=== PATIENT | female | born 1945 | race Caucasian/White ===

== ENCOUNTER 2017-03-12 12:14 | Outpatient (CLI) | payer OTHER ==
[~2017-03-12 12:14] MED LIST: ARICEPT10 MG; CLONAZEPAM1 MG; DOCUSATE SODIU100 MG PO; PERCOCET 5-3251 EACH PO; PROTONIX20 MG; RESTORIL30 M1
== END 2017-03-12 12:20 | disposition home or self-care (01) ==
LOC: RAD 12:14
DX: M50.00 Cervical disc disorder with myelopathy, unspecified cervical region (principal); Z98.1 Arthrodesis status

== ENCOUNTER 2017-06-12 15:29 | Outpatient (CLI) | payer OTHER | END 2017-06-12 15:36 | disposition home or self-care (01) | LOC: RAD 15:29 | DX: M50.00 Cervical disc disorder with myelopathy, unspecified cervical region (principal); Z98.1 Arthrodesis status ==

== ENCOUNTER 2017-08-19 09:30 | Inpatient (IN) | payer OTHER ==
[~2017-08-19] VITALS: Ht 152.4 cm; Wt 69.9 kg
[2017-08-19] MEDS ORDERED: HYDROCHLOROTHIA25 MG PO (12:02)
[2017-08-27] MEDS ORDERED: GABAPENTIN800 MG PO (09:17)
[2017-08-27] MEDS ORDERED: DOCUSATE SODIU100 MG PO (09:18)
[2017-08-27] MEDS ORDERED: PERCOCET 5-3251 EACH PO ×2 (09:19→09:44)
[2017-08-27] MEDS ORDERED: CLONAZEPAM1 MG PO (09:19)
[2017-08-27] MEDS ORDERED: AMOX-CLAV 875-1 EACH PO (09:19)
[2017-08-27] MEDS ORDERED: DIAZEPAM10 MG PO (09:44)
== END 2017-08-27 14:03 | disposition home or self-care (01) | DRG 460 ==
LOC: PED 08-26 05:50 → O/R 08-26 05:50 → SURH 08-26 09:30 → PED 08-26 14:34
PROVIDERS: Orthopaedic Surgery Orthopaedic Surgery of the Spine
PROC: 0SG00AJ Fusion of Lumbar Vertebral Joint with Interbody Fusion Device, Posterior Approach, Anterior Column, Open Approach (ICD-10-PCS; 2017-08-26)
PROC: 0ST20ZZ Resection of Lumbar Vertebral Disc, Open Approach (ICD-10-PCS; 2017-08-26)
PROC: 07DS3ZZ Extraction of Vertebral Bone Marrow, Percutaneous Approach (ICD-10-PCS; 2017-08-26)
PROC: 0SG00A0 Fusion of Lumbar Vertebral Joint with Interbody Fusion Device, Anterior Approach, Anterior Column, Open Approach (ICD-10-PCS; principal; 2017-08-26 13:00)
DX: M48.061 Spinal stenosis, lumbar region without neurogenic claudication (principal); M43.16 Spondylolisthesis, lumbar region; I10 Essential (primary) hypertension

== ENCOUNTER 2017-10-07 12:49 | Outpatient (CLI) | payer OTHER ==
[~2017-10-07 12:49] MED LIST changes: +AMOX-CLAV 875-1 EACH PO; +CLONAZEPAM1 MG PO; +DIAZEPAM10 MG PO; +GABAPENTIN800 MG PO; +HYDROCHLOROTHIA25 MG PO
== END 2017-10-07 13:13 | disposition home or self-care (01) ==
LOC: RAD 12:49
DX: M51.36 Other intervertebral disc degeneration, lumbar region (principal); Z98.1 Arthrodesis status

== ENCOUNTER 2017-11-21 10:36 | Outpatient (CLI) | payer OTHER | END 2017-11-21 11:24 | disposition home or self-care (01) | LOC: EKG 10:36 | DX: I10 Essential (primary) hypertension (principal) ==

== ENCOUNTER 2018-02-12 13:40 | Outpatient (CLI) | payer OTHER | END 2018-02-12 13:55 | disposition home or self-care (01) | LOC: RAD 13:40 | DX: Z12.31 Encounter for screening mammogram for malignant neoplasm of breast (principal); Z87.898 Personal history of other specified conditions; N60.11 Diffuse cystic mastopathy of right breast; N60.12 Diffuse cystic mastopathy of left breast; R10.2 Pelvic and perineal pain; M50.00 Cervical disc disorder with myelopathy, unspecified cervical region; Z98.1 Arthrodesis status; M48.061 Spinal stenosis, lumbar region without neurogenic claudication ==

== ENCOUNTER 2018-02-14 07:40 | Outpatient (CLI) | payer OTHER | END 2018-02-14 09:08 | disposition home or self-care (01) | LOC: NUCLEAR 07:40 | DX: I20.9 Angina pectoris, unspecified (principal) | CPT/HCPCS: 78452; 93017; A9500; J0153 ==

== ENCOUNTER 2018-10-09 10:40 | Outpatient (CLI) | payer OTHER | END 2018-10-09 11:33 | disposition home or self-care (01) | LOC: SONOGRAMA 10:40 | DX: E04.8 Other specified nontoxic goiter (principal) ==

== ENCOUNTER → 2018-10-09 | Outpatient (CLI) | payer OTHER | END | disposition home or self-care (01) | LOC: TOM 09:00 → SONOGRAMA 10:03 → TOM 10:03 | DX: E04.8 Other specified nontoxic goiter (principal) ==

== ENCOUNTER 2018-11-14 14:16 | Outpatient (CLI) | payer OTHER | END 2018-11-14 14:20 | disposition home or self-care (01) | LOC: SONOGRAMA 14:16 | DX: K11.21 Acute sialoadenitis (principal); E04.2 Nontoxic multinodular goiter ==

== ENCOUNTER 2019-08-17 14:51 | Emergency (ER) | payer OTHER ==
[~2019-08-17] VITALS: Ht 152.4 cm; Wt 68.0 kg
[2019-08-17] MEDS ORDERED: LIPITOR20 MG (15:10)
[2019-08-17] MEDS ORDERED: LEVSIN0.125 MG (15:11)
== END 2019-08-17 21:14 | disposition home or self-care (01) ==
LOC: ER 14:51
DX: K57.30 Diverticulosis of large intestine without perforation or abscess without bleeding (principal); K76.0 Fatty (change of) liver, not elsewhere classified; R10.32 Left lower quadrant pain; Z03.818 Encounter for observation for suspected exposure to other biological agents ruled out

== ENCOUNTER → 2019-10-22 08:00 | Outpatient (CLI) | payer OTHER ==
[~2019-10-22] VITALS: Ht 152.4 cm; Wt 68.0 kg
[~2019-10-22 08:00] MED LIST changes: +COLACE100 MG PO; +DESONIDE59 ML; +ESTAZOLAM2 MG PO; +LEVOTHYROXINE25 MCG PO; +LEVSIN0.125 MG; +LIPITOR20 MG; +MEDROLPACK PO; +NEURONTIN800 MG PO; +OPTIMAL D31250 MCG; +RESTORIL30 M1 PO; +SENNA8.6 MG; +TOLTERODINE TART4 MG
== END | disposition home or self-care (01) ==
LOC: LAB 08:00 → EDSTATUS 10:00 → ADM 10:00 → EDSTATUS 10-29 10:00 → SURH 10-29 10:00
PROVIDERS: ATTEND Orthopaedic Surgery Orthopaedic Surgery of the Spine
DX: M51.36 Other intervertebral disc degeneration, lumbar region (principal); Z20.828 Contact with and (suspected) exposure to other viral communicable diseases; M48.062 Spinal stenosis, lumbar region with neurogenic claudication; D68.8 Other specified coagulation defects; D64.89 Other specified anemias; E03.8 Other specified hypothyroidism; Z03.818 Encounter for observation for suspected exposure to other biological agents ruled out; R07.89 Other chest pain

== ENCOUNTER 2019-12-16 08:00 | Inpatient (IN) | payer OTHER ==
[~2019-12-16] VITALS: Ht 152.4 cm; Wt 67.1 kg
[~2019-12-16 08:00] MED LIST changes: -COLACE100 MG PO; -DESONIDE59 ML; -ESTAZOLAM2 MG PO; -MEDROLPACK PO; -NEURONTIN800 MG PO; -OPTIMAL D31250 MCG; -RESTORIL30 M1 PO; -SENNA8.6 MG; -TOLTERODINE TART4 MG
[2019-12-16] MEDS ORDERED: ESTAZOLAM2 MG PO (10:28)
[2019-12-23] MEDS ORDERED: OPTIMAL D31250 MCG (09:50)
[2019-12-23] MEDS ORDERED: SENNA8.6 MG (09:50)
[2019-12-23] MEDS ORDERED: TOLTERODINE TART4 MG (09:50)
[2019-12-23] MEDS ORDERED: DESONIDE59 ML (09:51)
[2019-12-23] MEDS ORDERED: PERCOCET 5-3251 EACH PO (11:03)
[2019-12-23] MEDS ORDERED: RESTORIL30 M1 PO (11:04)
[2019-12-23] MEDS ORDERED: MEDROLPACK PO (11:04)
[2019-12-23] MEDS ORDERED: AMOX-CLAV 875-1 EACH PO (11:04)
[2019-12-23] MEDS ORDERED: COLACE100 MG PO (11:04)
[2019-12-23] MEDS ORDERED: NEURONTIN800 MG PO (11:05)
== END 2019-12-25 13:15 | DRG 519 ==
LOC: SURG 12-23 06:00 → O/R 12-23 06:00 → SURH 12-23 08:00 → SURG 12-23 16:44
PROVIDERS: ADMIT Orthopaedic Surgery Orthopaedic Surgery of the Spine; ATTEND Orthopaedic Surgery Orthopaedic Surgery of the Spine
PROC: 0QU007Z Supplement Lumbar Vertebra with Autologous Tissue Substitute, Open Approach (ICD-10-PCS; 2019-12-23)
PROC: 0QB30ZZ Excision of Left Pelvic Bone, Open Approach (ICD-10-PCS; 2019-12-23)
PROC: 0SW004Z Revision of Internal Fixation Device in Lumbar Vertebral Joint, Open Approach (ICD-10-PCS; 2019-12-23)
PROC: 01NB0ZZ Release Lumbar Nerve, Open Approach (ICD-10-PCS; 2019-12-23)
PROC: 0SB20ZZ Excision of Lumbar Vertebral Disc, Open Approach (ICD-10-PCS; principal; 2019-12-23 15:45)
DX: M48.062 Spinal stenosis, lumbar region with neurogenic claudication (principal); M96.0 Pseudarthrosis after fusion or arthrodesis; I10 Essential (primary) hypertension; Z20.828 Contact with and (suspected) exposure to other viral communicable diseases

== ENCOUNTER 2019-12-16 12:20 | Outpatient (CLI) | payer OTHER ==
[~2019-12-16 12:20] MED LIST changes: +ESTAZOLAM2 MG PO
== END 2019-12-16 12:25 | disposition home or self-care (01) ==
LOC: RAD 12:20
PROVIDERS: ATTEND Internal Medicine Cardiovascular Disease
DX: I87.8 Other specified disorders of veins (principal); R10.84 Generalized abdominal pain; J44.9 Chronic obstructive pulmonary disease, unspecified

== ENCOUNTER 2020-05-24 13:41 | Outpatient (CLI) | payer OTHER ==
[~2020-05-24 13:41] MED LIST changes: +COLACE100 MG PO; +DESONIDE59 ML; +MEDROLPACK PO; +NEURONTIN800 MG PO; +OPTIMAL D31250 MCG; +RESTORIL30 M1 PO; +SENNA8.6 MG; +TOLTERODINE TART4 MG
== END 2020-05-24 13:54 | disposition home or self-care (01) ==
LOC: RAD 13:41
PROVIDERS: ATTEND Orthopaedic Surgery Orthopaedic Surgery of the Spine
DX: Z98.1 Arthrodesis status (principal)

== ENCOUNTER 2020-06-15 07:21 | Outpatient (CLI) | payer OTHER | END 2020-06-15 07:26 | disposition home or self-care (01) | LOC: LAB 07:21 | PROVIDERS: ATTEND Internal Medicine Cardiovascular Disease | DX: I10 Essential (primary) hypertension (principal); E11.9 Type 2 diabetes mellitus without complications; E03.8 Other specified hypothyroidism; E78.2 Mixed hyperlipidemia; Z12.11 Encounter for screening for malignant neoplasm of colon; E55.9 Vitamin D deficiency, unspecified; A60.9 Anogenital herpesviral infection, unspecified ==

== ENCOUNTER 2020-06-15 10:14 | Outpatient (CLI) | payer OTHER | END 2020-06-15 10:17 | disposition home or self-care (01) | LOC: NUCLEAR 10:14 | PROVIDERS: ATTEND Student in an Organized Health Care Education/Training Program | DX: M81.0 Age-related osteoporosis without current pathological fracture (principal) ==

== ENCOUNTER 2020-06-15 10:53 | Outpatient (CLI) | payer OTHER | END 2020-06-15 10:58 | disposition home or self-care (01) | LOC: MAMO-SONO 10:53 | PROVIDERS: ATTEND Internal Medicine Cardiovascular Disease | DX: Z12.31 Encounter for screening mammogram for malignant neoplasm of breast (principal); N63.11 Unspecified lump in the right breast, upper outer quadrant; Z87.898 Personal history of other specified conditions ==

== ENCOUNTER 2021-01-11 18:42 | Emergency (ER) | payer OTHER ==
[~2021-01-11] VITALS: Ht 152.4 cm; Wt 69.4 kg
[2021-01-11] MEDS ORDERED: DICLOFENAC SODI75 MG PO (21:31)
== END 2021-01-11 21:59 | disposition home or self-care (01) ==
LOC: ER 18:42
DX: S60.211A Contusion of right wrist, initial encounter (principal); M12.531 Traumatic arthropathy, right wrist; M79.641 Pain in right hand; W18.09XA Striking against other object with subsequent fall, initial encounter; Y93.89 Activity, other specified; Y92.513 Shop (commercial) as the place of occurrence of the external cause; Y99.8 Other external cause status

== ENCOUNTER 2021-02-09 10:58 | Outpatient (CLI) | payer OTHER ==
[~2021-02-09 10:58] MED LIST changes: +DICLOFENAC SODI75 MG PO
== END 2021-02-09 11:05 | disposition home or self-care (01) ==
LOC: SONOGRAMA 10:58
PROVIDERS: ATTEND Internal Medicine Gastroenterology
DX: K82.8 Other specified diseases of gallbladder (principal); R10.84 Generalized abdominal pain

== ENCOUNTER 2021-04-05 08:47 | Outpatient (CLI) | payer OTHER | END 2021-04-05 08:53 | disposition home or self-care (01) | LOC: NUCLEAR 08:47 | PROVIDERS: ATTEND Internal Medicine Gastroenterology | DX: K81.1 Chronic cholecystitis (principal) | CPT/HCPCS: 78227; A9510 ==

== ENCOUNTER 2021-06-20 12:39 | Outpatient (CLI) | payer OTHER | END 2021-06-20 12:49 | disposition home or self-care (01) | LOC: MAMO-SONO 12:39 | PROVIDERS: ATTEND Internal Medicine Cardiovascular Disease | DX: N63.11 Unspecified lump in the right breast, upper outer quadrant (principal) ==

== ENCOUNTER → 2021-07-26 08:35 | Outpatient (CLI) | payer OTHER | END | disposition home or self-care (01) | LOC: NUCLEAR 08:35 | PROVIDERS: ATTEND Internal Medicine Cardiovascular Disease | DX: K80.20 Calculus of gallbladder without cholecystitis without obstruction (principal) | CPT/HCPCS: 78226; A9510 ==

== ENCOUNTER 2021-10-15 19:02 | Emergency (ER) | payer OTHER ==
[~2021-10-15] VITALS: Ht 152.4 cm; Wt 71.7 kg
== END 2021-10-15 22:12 | disposition home or self-care (01) ==
LOC: ER 19:02
DX: K57.32 Diverticulitis of large intestine without perforation or abscess without bleeding (principal)

== ENCOUNTER 2021-10-24 13:12 | Inpatient (IN) | payer OTHER ==
[~2021-10-24] VITALS: Ht 152.4 cm; Wt 71.7 kg
[2021-10-24] MEDS ORDERED: ATORVASTATIN CA10 MG PO (13:48)
[2021-10-24] MEDS ORDERED: LEVOTHYROXINE25 MCG PO (13:48)
[2021-10-24] MEDS ORDERED: RESTORIL30 MG PO (13:49)
[2021-10-24] MEDS ORDERED: CLONAZEPAM1 MG PO (13:49)
[2021-10-24] MEDS ORDERED: VITAMIN D350 MCG (13:50)
[2021-10-24] MEDS ORDERED: PEPCID AC20 MG PO (13:51)
[2021-10-24] MEDS ORDERED: CIPRO500 MG PO (13:53)
[2021-10-24] MEDS ORDERED: METRONIDAZOLE500 MG PO (13:53)
--- NOTE | 2021-10-24 14:04 | NUR ---
SE RECIBE FEMINA DE 76 ANOS ALERTA Y ORIENTADA X3. LLEGA A ARNOLDO DE EMERGENCIA REFERIDA POR EL DR MALICK BYRD. REFIERE TENER DOLOR ABDOMINAL EN 10 EN LA ESCALA DE 10 POR DIVERTICULOS. SE COLOCA EN OBSERVACION CAMA 8 PENDIENTE A EVALUACION MEDICA.
--- NOTE | 2021-10-24 17:58 | NUR ---
PACIENTE EVALUADA POR DR MATTHEWS QUIEN [place] MED[place]. SE ORIENTA A PTE SOBRE [place] MED[place] Y REFIERE ENTENDER. SE REALIZAN MUESTRAS DE LABORATORIO Y ADMINISTRACION DE MEDICAMENTOS KARLENE ORDEN MEDICA BAJO MEDIDAS ASEPTICAS. SE MANTIENE EN ESPERA DE CT.
--- NOTE | 2021-10-24 20:28 | NUR ---
PTE CONSULTADA CON MEDICINA INTERNA AMOS ARRIOLA.
== END 2021-10-31 11:39 | disposition home or self-care (01) | DRG 392 ==
LOC: ER 13:12 → MEDI 10-25 01:32 → MEDJ 10-25 01:32 → MEDI 10-25 08:16
PROVIDERS: ADMIT Internal Medicine; ATTEND Internal Medicine
PROC: BW21ZZZ Computerized Tomography (CT Scan) of Abdomen and Pelvis (ICD-10-PCS; principal; 2021-10-24)
DX: K57.92 Diverticulitis of intestine, part unspecified, without perforation or abscess without bleeding (principal); I10 Essential (primary) hypertension; M43.16 Spondylolisthesis, lumbar region; R15.9 Full incontinence of feces; Z20.822 Contact with and (suspected) exposure to COVID-19

== ENCOUNTER 2022-06-25 11:10 | Outpatient (CLI) | payer OTHER ==
[~2022-06-25 11:10] MED LIST changes: +ATORVASTATIN CA10 MG PO; +CIPRO500 MG PO; +METRONIDAZOLE500 MG PO; +PEPCID AC20 MG PO; +RESTORIL30 MG PO; +VITAMIN D350 MCG
== END 2022-06-25 11:17 | disposition home or self-care (01) ==
LOC: MAMO-SONO 11:10
PROVIDERS: ATTEND Internal Medicine Cardiovascular Disease
DX: N63.11 Unspecified lump in the right breast, upper outer quadrant (principal); Z98.1 Arthrodesis status

== ENCOUNTER → 2022-10-15 08:08 | Outpatient (CLI) | payer OTHER | END | disposition home or self-care (01) | LOC: LAB 08:08 | PROVIDERS: ATTEND Surgery | DX: K57.32 Diverticulitis of large intestine without perforation or abscess without bleeding (principal); R10.32 Left lower quadrant pain; R15.9 Full incontinence of feces; Z03.818 Encounter for observation for suspected exposure to other biological agents ruled out; Z20.822 Contact with and (suspected) exposure to COVID-19 ==

== ENCOUNTER 2022-10-17 09:15 | Inpatient (IN) | payer OTHER ==
[~2022-10-17] VITALS: Ht 152.4 cm; Wt 68.0 kg
[2022-10-22] MEDS ORDERED: METRONIDAZOLE45 GM (13:13)
[2022-10-22] MEDS ORDERED: OPTIMAL D31250 MCG (13:13)
[2022-10-25] MEDS ORDERED: TRAM1TAB98 PO (17:33)
[2022-10-25] MEDS ORDERED: PEPCID AC20 MG PO (17:34)
== END 2022-10-25 18:08 | disposition home or self-care (01) | DRG 331 ==
LOC: SURG 10-22 09:15 → O/R 10-22 09:22 → SURH 10-22 18:02
PROVIDERS: Internal Medicine Geriatric Medicine; ADMIT Surgery; ATTEND Surgery
PROC: 0DTP4ZZ Resection of Rectum, Percutaneous Endoscopic Approach (ICD-10-PCS; 2022-10-22)
PROC: 0DBU4ZZ Excision of Omentum, Percutaneous Endoscopic Approach (ICD-10-PCS; 2022-10-22)
PROC: 0DJD8ZZ Inspection of Lower Intestinal Tract, Via Natural or Artificial Opening Endoscopic (ICD-10-PCS; 2022-10-22)
PROC: 0DBN4ZZ Excision of Sigmoid Colon, Percutaneous Endoscopic Approach (ICD-10-PCS; principal; 2022-10-22 09:15)
PROC: 4A12X4Z Monitoring of Cardiac Electrical Activity, External Approach (ICD-10-PCS; 2022-10-23)
DX: K57.32 Diverticulitis of large intestine without perforation or abscess without bleeding (principal); R15.9 Full incontinence of feces; I10 Essential (primary) hypertension

== ENCOUNTER 2023-02-01 13:17 | Emergency (ER) | payer OTHER ==
[~2023-02-01] VITALS: Ht 170.2 cm; Wt 81.6 kg
[~2023-02-01 13:17] MED LIST changes: +METRONIDAZOLE45 GM; +TRAM1TAB98 PO
[2023-02-01] MEDS ORDERED: DICLOFENAC SODI50 MG PO (17:38)
[2023-02-01] MEDS ORDERED: NORFLEX100MG PO (17:38)
== END 2023-02-01 18:00 ==
LOC: ER 13:17
DX: S09.8XXA Other specified injuries of head, initial encounter (principal); V48.0XXA Car driver injured in noncollision transport accident in nontraffic accident, initial encounter; Y93.89 Activity, other specified; Y92.413 State road as the place of occurrence of the external cause; S89.82XA Other specified injuries of left lower leg, initial encounter; S89.81XA Other specified injuries of right lower leg, initial encounter; S19.89XA Other specified injuries of other specified part of neck, initial encounter; K57.32 Diverticulitis of large intestine without perforation or abscess without bleeding; E03.9 Hypothyroidism, unspecified; E11.9 Type 2 diabetes mellitus without complications

== ENCOUNTER 2023-04-23 07:15 | Outpatient (CLI) | payer OTHER ==
[~2023-04-23 07:15] MED LIST changes: +DICLOFENAC SODI50 MG PO; +NORFLEX100MG PO
== END 2023-04-23 07:16 | disposition home or self-care (01) ==
LOC: NUCLEAR 07:15
PROVIDERS: ATTEND Internal Medicine
DX: I20.89 Other forms of angina pectoris (principal)
CPT/HCPCS: 78452; 93017; A9500; J0153

== ENCOUNTER 2023-06-06 15:41 | Emergency (ER) | payer OTHER ==
[~2023-06-06] VITALS: Ht 152.4 cm; Wt 72.6 kg
[2023-06-06] MEDS ORDERED: KETOROLAC TROMETHAMINE 15 MG VIAL IM STA (17:28)
== END 2023-06-06 19:01 | disposition home or self-care (01) ==
LOC: ER 15:42
DX: M25.50 Pain in unspecified joint (principal); W19.XXXA Unspecified fall, initial encounter
CPT/HCPCS: 72040; 73502; 73560; 73610; 96372; 99283; J1885

== ENCOUNTER 2023-09-12 13:29 | Outpatient (CLI) | payer OTHER | END 2023-09-12 13:38 | disposition home or self-care (01) | LOC: MAMO-SONO 13:29 | PROVIDERS: ATTEND Internal Medicine Cardiovascular Disease | DX: N60.11 Diffuse cystic mastopathy of right breast (principal); N60.12 Diffuse cystic mastopathy of left breast; Z12.31 Encounter for screening mammogram for malignant neoplasm of breast ==

== ENCOUNTER → 2024-06-04 09:41 | Outpatient (CLI) | payer OTHER ==
[2024-06-04 10:40] LABS: HEMATOCRIT 42.4 % (36.0-45.00); HEMOGLOBIN 14.2 g/dL (12.0-15.00); MEAN CELL VOLUME 91.1 fL (80.00-100.00); MEAN CORPUSCULAR HEMOGLOBIN 30.5 pg (27.00-32.0); MEAN CORPUSCULAR HGB CONC 33.5 g/dl (32.0-36.0); PLATELET COUNT 216 K/uL (150-450); RED BLOOD COUNT 4.65 M/uL (4.00-6.00)
[2024-06-04 11:00] LABS: INR 1.06; PARTIAL THROMBOPLASTIN TIME 30.2 SECONDS (22.0-34.0); PROTHROMBIN TIME 11.5 SECONDS (9.0-11.5)
[2024-06-04 11:06] LABS: URINE APPEARANCE Clear; URINE BILIRRUBIN Negative (NEGATIVE); URINE BLOOD Negative; URINE COLOR Yellow; URINE GLUCOSE Negative (NEGATIVE); URINE KETONE Negative (NEGATIVE); URINE LEUKOCYTE Negative; URINE NITRATE Negative; URINE PROTEIN Negative (NEGATIVE); URINE UROBILINOGEN 0.2 E.U./dl
[2024-06-04 11:11] LABS: URINE BACTERIA 185.9 uL (0.0-1933); URINE EPITHELIAL CELLS 16.2 uL (0.0-38.8)
[2024-06-04 11:14] LABS: URINE WBC 1.5 uL (0.0-23.2)
[2024-06-04 11:35] LABS: ALBUMIN 3.7 gm/dL (3.4-5.0); BILIRUBIN TOTAL 0.49 mg/dL (0.3-1.2); CALCIUM 9.2 mg/dL (8.5-10.1); CREATININE SERUM 0.81 mg/dL (0.55-1.02); GFR 68.75; GLOBULINA 3.9 G/DL (2.4-3.5); POTASSIUM 4.14 mEq/L (3.5-5.1); TOTAL PROTEIN 7.6 gm/dL (6.4-8.2)
== END | disposition home or self-care (01) ==
LOC: LAB 09:41
PROVIDERS: ATTEND Surgery
DX: K57.32 Diverticulitis of large intestine without perforation or abscess without bleeding (principal); R10.32 Left lower quadrant pain; R15.9 Full incontinence of feces; I10 Essential (primary) hypertension; Z03.818 Encounter for observation for suspected exposure to other biological agents ruled out

== ENCOUNTER 2024-06-11 11:50 | Emergency (ER) | payer OTHER ==
[~2024-06-11] VITALS: Ht 152.4 cm; Wt 70.3 kg
[2024-06-11] MEDS ORDERED: 0.9 % SODIUM CHLORIDE 1,000 ML IV SCH (12:00)
[2024-06-11 12:38] LABS: HEMATOCRIT 36.4 % (36.0-45.00); HEMOGLOBIN 12.5 g/dL (12.0-15.00); MEAN CELL VOLUME 88.2 fL (80.00-100.00); MEAN CORPUSCULAR HEMOGLOBIN 30.3 pg (27.00-32.0); MEAN CORPUSCULAR HGB CONC 34.3 g/dl (32.0-36.0); PLATELET COUNT 196 K/uL (150-450); RED BLOOD COUNT 4.13 M/uL (4.00-6.00); RED CELL DISTRIBUTION WIDTH 13.6 % (11.5-14.5)
[2024-06-11 13:47] LABS: CALCIUM 8.7 mg/dL (8.5-10.1); CREATININE SERUM 1.05 mg/dL (0.55-1.02); GFR 50.95; POTASSIUM 3.49 mEq/L (3.5-5.1)
[2024-06-11 14:24] LABS: URINE APPEARANCE Cloudy; URINE BILIRRUBIN Negative (NEGATIVE); URINE BLOOD Small; URINE COLOR Yellow; URINE GLUCOSE Negative (NEGATIVE); URINE KETONE Negative (NEGATIVE); URINE LEUKOCYTE Large; URINE NITRATE Negative
[2024-06-11 14:28] LABS: URINE BACTERIA 1725.6 uL (0.0-1933); URINE WBC 624.4 uL (0.0-23.2)
[2024-06-11 14:38] LABS: URINE CAST 0.14 uL (0.0-1.40); URINE PROTEIN 100 (NEGATIVE)
[2024-06-11] MEDS ORDERED: CEFTRIAXONE SODIUM 1,000 MG VIAL ONE (15:57)
[2024-06-11] MEDS ORDERED: CEFTRIAXONE SODIUM 1,000 MG VIAL IM ONE (16:00)
== END 2024-06-11 16:09 | disposition home or self-care (01) ==
LOC: ER 11:50
PROVIDERS: Emergency Medicine
DX: S42.492A Other displaced fracture of lower end of left humerus, initial encounter for closed fracture (principal); S09.8XXA Other specified injuries of head, initial encounter; W19.XXXA Unspecified fall, initial encounter; Y93.89 Activity, other specified; Y92.89 Other specified places as the place of occurrence of the external cause; Y99.8 Other external cause status; Z20.822 Contact with and (suspected) exposure to COVID-19; I10 Essential (primary) hypertension; E03.8 Other specified hypothyroidism
CPT/HCPCS: 29125; 36415; 70450; 73070; 73560; 96365; 96366; 96372; 99284; J0696; J7030

== ENCOUNTER 2024-06-15 07:32 | Day surgery (SDC) | payer OTHER ==
[2024-06-15] MEDS ORDERED: CEFAZOLIN SODIUM 1,000 MG VIAL ONE ×2 (10:40→12:28)
[2024-06-15] MEDS ORDERED: POVIDONE-IODINE 118 ML BOTT TOP ONE (13:30)
[2024-06-15] MEDS ORDERED: LIDOCAINE HCL 1%/EPINEPHRINE 20ML VIAL IJ ONE (13:30)
[2024-06-15] MEDS ORDERED: BUPIVACAINE HCL/MPF 0.5% 30ML VIAL ONE (13:30)
[2024-06-15] MEDS ORDERED: TRAM1TAB98 PO (14:30)
== END 2024-06-15 16:00 | disposition home or self-care (01) ==
LOC: CIR.AMB 07:32
PROVIDERS: ATTEND Surgery
DX: R15.9 Full incontinence of feces (principal); R32 Unspecified urinary incontinence; M19.90 Unspecified osteoarthritis, unspecified site; F41.9 Anxiety disorder, unspecified; E03.8 Other specified hypothyroidism
CPT/HCPCS: 64581; C1778

== ENCOUNTER 2024-06-25 09:30 | Day surgery (SDC) | payer OTHER ==
[2024-06-25] MEDS ORDERED: CEFAZOLIN SODIUM 1,000 MG VIAL ONE (11:05)
[2024-06-25] MEDS ORDERED: LIDOCAINE HCL 1%/EPINEPHRINE 20ML VIAL IJ ONE (13:23)
[2024-06-25] MEDS ORDERED: BUPIVACAINE HCL/MPF 0.5% 30ML VIAL ONE (13:25)
[2024-06-25] MEDS ORDERED: TRAM1TAB98 PO (14:13)
== END 2024-06-25 16:10 | disposition home or self-care (01) ==
LOC: CIR.AMB 09:30
PROVIDERS: ATTEND Surgery
DX: R15.9 Full incontinence of feces (principal); E03.8 Other specified hypothyroidism; M19.90 Unspecified osteoarthritis, unspecified site; F41.9 Anxiety disorder, unspecified; E78.5 Hyperlipidemia, unspecified
CPT/HCPCS: 64590; 95972; C1767